=== PATIENT | female | born 1975 | race Hispanic/Latino ===

== ENCOUNTER 2022-12-12 18:15 | Emergency (ER) | payer BC, OTHER ==
[~2022-12-12] VITALS: Ht 157.5 cm; Wt 86.2 kg
[2022-12-12] MEDS ORDERED: ACETAMINOPHEN WITH CODEINE 1 TAB TAB PO ONE (22:30)
[2022-12-12 23:27] VITALS: BP 131/74
== END 2022-12-12 23:31 | disposition home or self-care (01) ==
LOC: EDH 18:15
DX: S05.01XA Injury of conjunctiva and corneal abrasion without foreign body, right eye, initial encounter (principal); G44.209 Tension-type headache, unspecified, not intractable; I10 Essential (primary) hypertension; X58.XXXA Exposure to other specified factors, initial encounter; Y93.89 Activity, other specified; Y92.89 Other specified places as the place of occurrence of the external cause; Y99.8 Other external cause status
CPT/HCPCS: 70450; 81025